=== PATIENT | male | born 1965 | race Caucasian/White ===

== ENCOUNTER 2017-04-09 16:15 | Emergency (ER) | payer OTHER ==
[~2017-04-09] VITALS: Ht 167.6 cm; Wt 91.0 kg
[2017-04-09 16:19] VITALS: Ht 167.6 cm; Wt 91.0 kg
[2017-04-09] MEDS ORDERED: METOCLOPRAMIDE 10 MG INJ IV STA (16:32)
[2017-04-09] MEDS ORDERED: SOD CHLORIDE 0.9% 1,000 ML IV STA (16:32)
--- NOTE | 2017-04-09 16:37 | ERD ---
ER Documentation Chief Complaint Date/Time DATE: 04/09/17 TIME: 16:34 Chief Complaint Complains of dizziness and vomiting HPI Patient is a 51-year-old male with history of hypertension, off medication for 1 year, who presents with 4 days of gradual onset, intermittent, moderate dizziness described as a spinning sensation, associated with a occipital headache that has been present in the morning. The headache is moderate when he awakens and gets worse over the ensuing hours. The patient experienced 4 episodes of vomiting today. He denies chest pain, diplopia, numbness or weakness of the extremities, neck stiffness, diarrhea, dysuria, fever. Patient reports having mild shortness of breath. The patient does report 8 months of hearing loss in the right ear. He denies tinnitus. ROS All systems reviewed and are negative except as per history of present illness. Medications Home Meds Active Scripts Amlodipine Besylate* (Norvasc*) 5 Mg Tablet, 5 MG PO DAILY, #30 TAB Prov:AMOR JIM MD 04/09/17 Meclizine Hcl* (Antivert*) 12.5 Mg Tab, 25 MG PO Q6H Y for DIZZINESS, #24 TAB Prov:AMOR JIM MD 04/09/17 Allergies Allergies: Coded Allergies: No Known Allergy (Unverified , 04/09/17) FmHx Past medical history: Hypertension Past surgical history: Denies Social history: Denies tobacco or alcohol Family History: No coronary disease, No diabetes Physical Exam Vitals Vital Signs Date Time Temp Pulse Resp B/P Pulse Ox O2 Delivery O2 Flow Rate FiO2 04/09/17 17:50 95 17 160/89 100 Room Air 04/09/17 16:42 90 17 198/103 100 Room Air 04/09/17 16:19 97.0 98 20 229/108 98 Physical Exam Const: Alert, no acute distress Head: Atraumatic Eyes: Normal Conjunctiva, no pallor, no icterus ENT: Normal External Ears, Nose and Mouth. Moist mucous membranes, normal tympanic membranes Neck: Full range of motion..~ No meningismus. Resp: Clear to auscultation bilaterally, no wheezes, no rales Cardio: Regular rate and rhythm, no murmurs Abd: Soft, non tender, non distended. Skin: No petechiae or rashes Back: No midline or flank tenderness Ext: No cyanosis, or edema Neur: Awake and alert, cranial nerves II through XII intact bilaterally, strength and sensation full in 4 extremities, no pronator drift, no dysmetria, no nystagmus Psych: Normal Mood and Affect Result Diagram: 04/09/17 1630 04/09/17 1720 Results 24 hrs Laboratory Tests Test 04/09/17 16:30 04/09/17 17:20 04/09/17 17:43 White Blood Count 18.210^3/ul Red Blood Count 5.5410^6/ul Hemoglobin 16.1g/dl Hematocrit 47.2% Mean Corpuscular Volume 85.2fl Mean Corpuscular Hemoglobin 29.1pg Mean Corpuscular Hemoglobin Concent 34.1g/dl Red Cell Distribution Width 12.9% Platelet Count 28151^3/UL Mean Platelet Volume 10.6fl Neutrophils % 84.7% Lymphocytes % 10.2% Monocytes % 3.9% Eosinophils % 0.4% Basophils % 0.2% Nucleated Red Blood Cells % 0.0/100WBC Neutrophils # 15.410^3/ul Lymphocytes # 1.910^3/ul Monocytes # 0.710^3/ul Eosinophils # 0.110^3/ul Basophils # 0.010^3/ul Nucleated Red Blood Cells # 0.010^3/ul Prothrombin Time 11.9Sec Prothrombin Time Ratio 0.9 INR International Normalized Ratio 0.88 Activated Partial Thromboplast Time 25.2Sec Sodium Level 143mmol/L Potassium Level 4.1mmol/L Chloride Level 105mmol/L Carbon Dioxide Level 31mmol/L Anion Gap 11 Blood Urea Nitrogen 12mg/dl Creatinine 0.81mg/dl Glucose Level 126mg/dl Calcium Level 9.6mg/dl Troponin I < 0.012ng/ml Urine Color LT. YELLOW Urine Clarity CLEAR Urine pH 7.0 Urine Specific [place] 1.015 Urine Ketones NEGATIVE Urine Nitrite NEGATIVE Urine Bilirubin NEGATIVE Urine Urobilinogen 0.2 E.U./dL Urine Leukocyte Esterase NEGATIVE Urine Hemoglobin NEGATIVE Urine Glucose NEGATIVE% Urine Total Protein NEGATIVE Current Medications Medications (Trade) Dose Ordered Sig/Sherlyn Route PRN Reason Start Time Stop Time Status Last Admin Dose Admin Sodium Chloride (NS) 1,000 ml @ 1,000 mls/hr Q1H STAT IV 04/09/17 16:32 04/09/17 17:31 DC 04/09/17 16:42 Metoclopramide HCl (Reglan) 10 mg ONCE STAT IV 04/09/17 16:32 04/09/17 16:34 DC 04/09/17 16:41 Meclizine HCl (Antivert) 25 mg ONCE ONCE PO 04/09/17 17:00 04/09/17 17:01 DC 04/09/17 16:42 IV Flush 10 ml 10 ml STK-MED ONCE .ROUTE 04/09/17 16:46 04/09/17 16:47 DC Sodium Chloride (NS) 100 ml @ ud STK-MED ONCE .ROUTE 04/09/17 16:46 04/09/17 16:47 DC Iodixanol (Visipaque Locm) 100 ml STK-MED ONCE .ROUTE 04/09/17 16:46 04/09/17 16:47 DC Procedures/MDM EKG read by me: Time 1623, rate 92 Rhythm: Normal sinus [place]: Rightward axis Intervals: Normal ST-T waves: T-wave inversion in lateral and inferior leads Ectopy: No Q-waves: No Impression: Lateral and inferior T-wave inversion is nonspecific. MDM: Patient is a 51-year-old male who presents with 4 days of vertigo associated with headache. The patient has no other neurologic symptoms or deficits on exam. He has a normal ear exam, although he does complain of chronic hearing loss in the right ear. The patient's headache does not have features for subarachnoid hemorrhage or meningitis. The patient's symptoms almost completely resolved with Reglan and meclizine. Head CT was unremarkable. The patient has history of hypertension, but is not taking any medication currently. I will prescribe him amlodipine. He the patient has leukocytosis, but no fever or signs of infection on exam, UA, chest x-ray. He has no meningeal signs. I will prescribe the patient amlodipine and meclizine, and I have advised him to follow-up with an ENT doctor for further workup and treatment of peripheral vertigo, in particular given complaint of hearing loss. I have also advised him to follow-up with his PMD in the next week for blood pressure recheck and titration of medications. Departure Diagnosis: Primary Impression: Vertigo Additional Impressions: Headache Headache type: unspecified Headache chronicity pattern: episodic headache Intractability: not intractable Qualified Code: R51 - Nonintractable episodic headache, unspecified headache type Hypertension Hypertension type: essential hypertension Qualified Code: I10 - Essential hypertension Condition: AMOR Medina MD Apr 09, 2017 16:37
[2017-04-09] MEDS ORDERED: IODIXANOL LOCM 100 ML BTL ONE (16:46)
[2017-04-09] MEDS ORDERED: SOD CHLORIDE 0.9% 100 ML ONE (16:46)
[2017-04-09 16:56] LABS: ADD SCAN DIFF NO
[2017-04-09 16:59] LABS: BASOPHILS % 0.2 % (0.0-2.0); EOSINOPHILS # 0.1 10^3/ul (0.0-0.5); EOSINOPHILS % 0.4 % (0.0-7.0); HEMATOCRIT 47.2 % (42.0-52.0); HEMOGLOBIN 16.1 g/dl (14.0-18.0); LYMPHOCYTES # 1.9 10^3/ul (0.8-2.9); LYMPHOCYTES % 10.2 % (15.0-51.0); MEAN CORPUSCULAR HEMOGLOBIN 29.1 pg (29.0-33.0); MEAN CORPUSCULAR HGB CONC 34.1 g/dl (32.0-37.0); MEAN CORPUSCULAR VOLUME 85.2 fl (82.0-101.0); MEAN PLATELET VOLUME 10.6 fl (7.4-10.4); MONOCYTE # 0.7 10^3/ul (0.3-0.9); MONOCYTES % 3.9 % (0.0-11.0); NEUTROPHIL # 15.4 10^3/ul (1.6-7.5); NEUTROPHILS % 84.7 % (39.0-77.0); PLATELET COUNT 234 10^3/UL (140-415); RED BLOOD COUNT 5.54 10^6/ul (4.70-6.10); RED CELL DISTRIBUTION WIDTH 12.9 % (11.5-14.5); WHITE BLOOD COUNT 18.2 10^3/ul (4.8-10.8)
[2017-04-09] MEDS ORDERED: MECLIZINE 12.5 MG TAB PO ONE (17:00)
--- NOTE | 2017-04-09 17:11 | RADRPT ---
PROCEDURE: Chest 1 views. CLINICAL INDICATION: Abnormal breath sounds, headache. TECHNIQUE: AP views of the chest was obtained. COMPARISON: None. FINDINGS: The heart is large. Mild elevation of the right hemidiaphragm is identified. Minimal atelectasis is seen at the left lung base. No consolidations are identified. No pneumothorax is seen. Osseous s tructures are intact. IMPRESSION: Cardiomegaly . Mild elevation of the right hemidiaphragm. Subsegmental atelectasis at the left lung base. RPTAT: AA .Scar Rodney MD, Date Time Electronically viewed and signed by .Scar Rodney MD, on 04/09/2017 17:11 .P/
[2017-04-09 17:16] LABS: INR 0.88; PARTIAL THROMBOPLASTIN TIME 25.2 Sec (25.0-35.0); PROTIME 11.9 Sec (12.2-14.2); PT RATIO 0.9
[2017-04-09 17:45] LABS: ANION GAP 11 (8-16); BLOOD UREA NITROGEN 12 mg/dl (7-20); CALCIUM 9.6 mg/dl (8.4-10.2); CARBON DIOXIDE 31 mmol/L (21-31); CHLORIDE 105 mmol/L (97-110); CREATININE 0.81 mg/dl (0.61-1.24); GLUCOSE 126 mg/dl (70-220); POTASSIUM 4.1 mmol/L (3.5-5.1); SODIUM 143 mmol/L (135-144)
[2017-04-09 17:50] VITALS: BP 160/89; PULSE 95; RESP 17
[2017-04-09 18:00] LABS: TROPONIN-I < 0.012 ng/ml (0.00-0.12)
[2017-04-09 18:02] LABS: ADD UMIC NO; URINE BILIRUBIN (Dip) NEGATIVE (NEGATIVE); URINE BLOOD (Dip) NEGATIVE (NEGATIVE); URINE COLOR LT. YELLOW (YELLOW); URINE GLUCOSE (Dip) NEGATIVE (NEGATIVE); URINE KETONES (Dip) NEGATIVE (NEGATIVE); URINE LEUKOCYTE ESTERASE (Dip) NEGATIVE (NEGATIVE); URINE NITRITE (Dip) NEGATIVE (NEGATIVE); URINE TOTAL PROTEIN (Dip) NEGATIVE (NEGATIVE); URINE UROBILINOGEN (Dip) 0.2 E.U./dL (0.1-1.0)
--- NOTE | 2017-04-09 18:09 | RADRPT ---
PROCEDURE: Noncontrast CT Head. CLINICAL INDICATION: Headache. TECHNIQUE: Noncontrast CT of the head was obtained. The administered radiation dose was CTDI vol = 42.81 mGy, DLP = 720.23 mGy-cm. One or more of the following dose reduction techniques were used: Au tomated exposure control, Adjustment of the mA and/or kV according to patient size, or Use of iterat ellie reconstruction technique. COMPARISON: There are no similar studies submitted for comparison. FINDINGS: The ventricles and sulci are within normal limits. There is a coarse calcification within the right parietal lobe suggesting prior infectious/inflammat ory etiologies such as neurocysticercosis. There is no loss of ramon-white differentiation to suggest acute territorial infarction. There is no acute intracranial hemorrhage or extra-axial fluid collection. There is no mass effect. No midline shift is identified. The orbits are within normal limits. The paranasal sinuses are well aerated. No destructive osseous lesion is identified. IMPRESSION: 1. No acute intracranial hemorrhage or extra-axial fluid collection. 2. There is a coarse calcification within the right parietal lobe suggesting prior infectious/inflam matory etiologies such as neurocysticercosis. Further findings as detailed above. RPTAT: HVF .Terrance Vicente MD, Date Time Electronically viewed and signed by .Terrance Vicente MD, MD on 04/09/2017 18:08 .F/
[2017-04-09] MEDS ORDERED: MECL12.574 PO (18:27)
[2017-04-09] MEDS ORDERED: AMLO5TAB4 PO (18:27)
== END 2017-04-09 18:47 | disposition home or self-care (01) ==
LOC: E/R 16:15
DX: R42 Dizziness and giddiness (principal); R51 Headache; I10 Essential (primary) hypertension; R06.02 Shortness of breath
CPT/HCPCS: 70450; 71010; 80048; 81003; 84484; 85025; 85610; 85730; 93005; J2765; J7030; Q9967; 36415; 96374